=== PATIENT | female | born 1985 | race Caucasian/White ===

== ENCOUNTER → 2017-05-26 | Outpatient (CLI) | payer BC ==
[~2017-05-26] MED LIST: PRENATAL1 TA1 PO
== END ==
LOC: SUN.DIA 08:45
DX: O24.419 Gestational diabetes mellitus in pregnancy, unspecified control (principal); Z3A.30 30 weeks gestation of pregnancy; Z71.3 Dietary counseling and surveillance
CPT/HCPCS: G0108

== ENCOUNTER → 2017-06-01 | Outpatient (CLI) | payer BC | LOC: SUN.DIA 10:15 | DX: O24.419 Gestational diabetes mellitus in pregnancy, unspecified control (principal); Z3A.31 31 weeks gestation of pregnancy; Z71.3 Dietary counseling and surveillance | CPT/HCPCS: G0108 ==

== ENCOUNTER 2017-06-06 09:30 | Inpatient (IN) | payer BC ==
[~2017-06-06] VITALS: Ht 157.5 cm; Wt 68.5 kg
[2017-08-03] VITALS (37 sets, daily range): BP systolic 108–1133; BP diastolic 56–91; PULSE 53–81; TEMP 98.3–99.2
[2017-08-03] MEDS ORDERED: CALCIUM CARBON650 M2 (07:56)
[2017-08-03 08:39] LABS: BASO % 0.4 % (0.0-2.0); EOS # 0.1 (0.0-0.7); EOS % 0.7 % (0-4.0); GRAN # 5.6 (1.4-6.5); GRAN % 68.6 % (42.2-75.2); HEMOGLOBIN 12.5 g/dl (12.5-16.0); LYMPH # 1.9 (1.2-3.4); LYMPH % 22.9 % (20.0-51.0); MEAN CELL VOLUME 91 fl (80.0-100.0); MEAN CORPUSCULAR HEMOGLOBIN 31 pg (27.0-31.0); MEAN CORPUSCULAR HGB CONC 34 g/dl (33.0-37.0); MONO # 0.6 (0.1-0.6); MONO % 6.7 % (1.7-9.3); PLATELET COUNT 214 K/mm3 (130-400); RED BLOOD COUNT 4.05 M/mm3 (4.10-5.30); REDCELL DISTRIBUTION WIDTH-CV 13.4 % (11.5-14.5); WHITE BLOOD COUNT 8.2 K/mm3 (4.8-10.8)
[2017-08-04 04:00] VITALS: BP 116/56; PULSE 66; TEMP 98.3
[2017-08-04 07:52] VITALS: BP 112/66; PULSE 71; TEMP 98.5
[2017-08-04 16:49] VITALS: BP 138/70; PULSE 69; TEMP 98.1
[2017-08-04 20:00] VITALS: BP 120/58; PULSE 66; TEMP 98.9
[2017-08-05 09:33] VITALS: BP 117/65; PULSE 75; TEMP 98
== END 2017-08-05 15:10 | disposition home or self-care (01) | DRG 775 ==
LOC: LDRO → LDR 08-03 07:11 → OB 08-03 07:11 → LDR 08-03 13:14 → OB 08-03 17:00 → LDRO 08-05 07:46 → EDSTATUS 08-05 13:12 → OB 08-05 15:10
PROVIDERS: Student in an Organized Health Care Education/Training Program
PROC: 10E0XZZ Delivery of Products of Conception, External Approach (ICD-10-PCS; principal; 2017-08-03)
DX: O36.0130 Maternal care for anti-D [Rh] antibodies, third trimester, not applicable or unspecified (principal); O99.824 Streptococcus B carrier state complicating childbirth; O24.420 Gestational diabetes mellitus in childbirth, diet controlled; O69.81X0 Labor and delivery complicated by cord around neck, without compression, not applicable or unspecified; Z3A.39 39 weeks gestation of pregnancy; Z37.0 Single live birth
CPT/HCPCS: J2540; J2590; J7120

== ENCOUNTER 2019-10-11 07:06 | Inpatient (IN) | payer BC ==
[~2019-10-11] VITALS: Ht 160 cm; Wt 70.9 kg
[2019-10-11] VITALS (25 sets, daily range): BP systolic 104–142; BP diastolic 51–79; PULSE 72–95; TEMP 98.1–98.9
[~2019-10-11 07:06] MED LIST changes: +CALCIUM CARBON650 M2
--- NOTE | 2019-10-11 07:17 | NUR ---
Presents to labor and delivery for induction of labor. Assessment done, questions offered and answered.
--- NOTE | 2019-10-11 08:00 | NUR ---
Pitocin 2 adelita units iv started as ordered and per protocol. 0810 Pen g 5 million units iv given as ordered and per policy for group b strep positive.
[2019-10-11 08:09] LABS: HEMOGLOBIN 11.6 g/dl (12.5-16.0); MEAN CELL VOLUME 92 fl (80.0-100.0); MEAN CORPUSCULAR HEMOGLOBIN 31 pg (27.0-31.0); MEAN CORPUSCULAR HGB CONC 34 g/dl (33.0-37.0); MEAN PLATELET VOLUME 9.1 fl (7.4-10.4); PLATELET COUNT 267 K/mm3 (130-400); RED BLOOD COUNT 3.75 M/mm3 (4.10-5.30); REDCELL DISTRIBUTION WIDTH-CV 13.9 % (11.5-14.5)
[2019-10-11 08:19] LABS: HEMATOCRIT 34.4 % (37.0-47.0)
--- NOTE | 2019-10-11 08:45 | NUR ---
0831 Dr. Yao here, arom done, moderate amount of clear fluid. Pad changed.
[2019-10-11 09:36] LABS: LYMPHOCYTE 22 % (20.0-51.0); NEUTROPHILS 75 % (42.0-75.2)
[2019-10-11 09:37] LABS: PLATELET ESTIMATE NORMAL (NORMAL)
--- NOTE | 2019-10-11 09:45 | NUR ---
Continues to sit up on birthing ball. Breathes through contractions. Tolerates well. Denies wanting any pain medication.
--- NOTE | 2019-10-11 10:30 | NUR ---
Continues sitting on birthing ball. Breathes through contractions. Denies wanting any thing for pain.
--- NOTE | 2019-10-11 10:45 | NUR ---
To bed from birthing ball. 1055 Vag check done, dilated to five. States just wants to sit her in bed. Dr. Yao called and updated. See physicians notification please.
--- NOTE | 2019-10-11 11:15 | NUR ---
Ambulates back from bathroom. Sits up in bed, alert. Breathes through contractions. Denies wanting any medication at this time.
--- NOTE | 2019-10-11 12:00 | NUR ---
States feeling more pressure. Assisted to bed. Vag exam done, eight-nine, one hundred percent, plus one station. Dr. Yao called to come to delivery. 1210 Dr. Yao here, prepped for delivery. Pushes with contractions. [address] Yao with 10 second shoulder distocia. Lew manuever and suprapubic pressure done. 1226 Spontaneous delivery of placenta. Pitocin infusing at 333ccs an hour.
--- NOTE | 2019-10-11 12:19 | NUR ---
Shoulder distocia noted for 10 seconds. Lwe manuever and suprpubic pressure done.
--- NOTE | 2019-10-11 12:30 | NUR ---
Holds baby skin to skin. Spouse at bedside.
--- NOTE | 2019-10-11 13:00 | NUR ---
Rests in bed, alert, holds baby. baby.
--- NOTE | 2019-10-11 14:00 | NUR ---
Rests in bed, alert. Continues to breast feed.
--- NOTE | 2019-10-11 15:00 | NUR ---
Rests in bed, alert. Eating meal. 1530 Ambulates to the bathroom, tolerates well. Haleigh-care demonstrated and done by patient. Ice pack on. Ambulates to 214 pushing baby in crib.
--- NOTE | 2019-10-11 17:00 | NUR ---
1708 Request pain medication. Tylenol 650 mg given per request and as ordered. Family here to visit.
[2019-10-12 01:00] VITALS: BP 123/71; PULSE 67; TEMP 98.6
[2019-10-12 08:14] VITALS: BP 116/67; PULSE 70; TEMP 36.6
[2019-10-12] MEDS ORDERED: IBU800 M1 PO (08:31)
--- NOTE | 2019-10-12 10:19 | NUR ---
Initial visit; Patient thanked Technical Solution Architect for offering congratulations and God's blessings for the of her daughter. Technical Solution Architect thanked Jeanne for choosing [facility].
[2019-10-12 21:35] VITALS: BP 115/57; PULSE 77; TEMP 98.8
[2019-10-13 07:25] VITALS: BP 101/52; PULSE 72; TEMP 98.6
--- NOTE | 2019-10-13 10:52 | NUR ---
Congratulated the family on their new baby.
== END 2019-10-13 11:20 | disposition home or self-care (01) | DRG 807 ==
LOC: LDR 07:06 → OB 08:21
PROVIDERS: ADMIT Student in an Organized Health Care Education/Training Program
PROC: 10E0XZZ Delivery of Products of Conception, External Approach (ICD-10-PCS; principal; 2019-10-11)
PROC: 10907ZC Drainage of Amniotic Fluid, Therapeutic from Products of Conception, Via Natural or Artificial Opening (ICD-10-PCS; 2019-10-11)
PROC: 3E033VJ Introduction of Other Hormone into Peripheral Vein, Percutaneous Approach (ICD-10-PCS; 2019-10-11)
DX: O48.0 Post-term pregnancy (principal); Z37.0 Single live birth; Z3A.41 41 weeks gestation of pregnancy; O99.824 Streptococcus B carrier state complicating childbirth; O26.893 Other specified pregnancy related conditions, third trimester; O66.0 Obstructed labor due to shoulder dystocia; Z67.41 Type O blood, Rh negative; B95.1 Streptococcus, group B, as the cause of diseases classified elsewhere
CPT/HCPCS: J2540; J2590; J7120

== ENCOUNTER 2021-06-02 06:40 | Inpatient (IN) | payer BC ==
[~2021-06-02] VITALS: Ht 154.9 cm; Wt 74.1 kg
[2021-06-02] VITALS (19 sets, daily range): BP systolic 100–129; BP diastolic 52–83; PULSE 65–109; TEMP 97.5–99.1
[~2021-06-02 06:40] MED LIST changes: +IBU800 M1 PO
--- NOTE | 2021-06-02 10:58 | NUR ---
[id number]: Note much difficulty attempting to trace both fetuses. Note fetuses both reportedly active per patient, and also visibly and audibly active with US. notified. Bedside US performed. [id number]: Able to obtain 10 minute strip with both fetuses tracing prior to procedure. Category I strips noted.
[2021-06-02 11:20] LABS: HEMOGLOBIN 10.4 g/dl (12.5-16.0); MEAN CELL VOLUME 94 fl (80.0-100.0); MEAN CORPUSCULAR HEMOGLOBIN 32 pg (27.0-31.0); MEAN CORPUSCULAR HGB CONC 34 g/dl (33.0-37.0); MEAN PLATELET VOLUME 10.9 fl (7.4-10.4); PLATELET COUNT 280 K/mm3 (130-400); RED BLOOD COUNT 3.26 M/mm3 (4.10-5.30); REDCELL DISTRIBUTION WIDTH-CV 14.2 % (11.5-14.5)
[2021-06-02 11:32] LABS: HEMATOCRIT 30.7 % (37.0-47.0)
--- NOTE | 2021-06-02 11:55 | NUR ---
FHT prior to beginning surgery per US: fetus A: 120s, fetus B: 140s.
[2021-06-02 12:15] LABS: BAND 1 % (0-10); EOSINOPHIL 1 % (0-4); LYMPHOCYTE 12 % (20.0-51.0); METAMYELOCYTE 2 % (0-0); NEUTROPHILS 77 % (42.0-75.2); PLATELET ESTIMATE NORMAL (NORMAL)
[2021-06-02 12:19] LABS: POLYCHROMASIA 1+
--- NOTE | 2021-06-02 12:30 | NUR ---
Surgicel added to sterile field per physician verbal order. Note expiration 06/06/2022, LOT RBBATE. This, along with twin gestation, makes this a high risk delivery.
--- NOTE | 2021-06-02 13:00 | NUR ---
Placentas sent off to pathology per physician's verbal order, twin gestation. Note cord clamp on baby B placenta.
--- NOTE | 2021-06-02 15:25 | NUR ---
Sitting up in bed eating dinner @ this time. Denies any need for pain meds.
[2021-06-03 00:07] VITALS: BP 118/62; PULSE 86; TEMP 99
[2021-06-03 03:45] VITALS: BP 131/63; PULSE 80; TEMP 98.5
[2021-06-03 08:00] VITALS: BP 122/68; PULSE 79; TEMP 98.1
[2021-06-03] MEDS ORDERED: IBU800 M1 PO (12:30)
[2021-06-03] MEDS ORDERED: PERCOCET 325 MG1 TA2 PO (12:30)
[2021-06-03 16:10] VITALS: BP 126/72; PULSE 78; TEMP 98.4
[2021-06-03 20:28] VITALS: BP 131/63; PULSE 81; TEMP 98
[2021-06-04 07:02] VITALS: BP 124/68; PULSE 81; TEMP 98.4
[2021-06-04 17:07] VITALS: BP 112/68; PULSE 76; TEMP 98.2
== END 2021-06-04 17:14 | disposition home or self-care (01) | DRG 788 ==
LOC: OB 09:58
PROVIDERS: ADMIT Student in an Organized Health Care Education/Training Program
PROC: 10D00Z1 Extraction of Products of Conception, Low, Open Approach (ICD-10-PCS; principal; 2021-06-02)
DX: O30.043 Twin pregnancy, dichorionic/diamniotic, third trimester (principal); O32.1XX0 Maternal care for breech presentation, not applicable or unspecified; Z3A.37 37 weeks gestation of pregnancy; O99.824 Streptococcus B carrier state complicating childbirth; O99.02 Anemia complicating childbirth; D64.9 Anemia, unspecified; Z86.16 Personal history of COVID-19; Z37.2 Twins, both liveborn; O26.893 Other specified pregnancy related conditions, third trimester; Z67.41 Type O blood, Rh negative
CPT/HCPCS: J0690; J1100; J1885; J2405; J2590; J2765; J7120